=== PATIENT | female | born 1975 | race Caucasian/White ===

== ENCOUNTER → 2018-11-25 05:46 | Day surgery (SDC) | payer OTHER ==
[~2018-11-25 05:46] MED LIST: Acetaminophen TAB* 325 MG ONE; Acetaminophen TAB* 325 MG PO PRN; Buffered Lidocaine 1% SYRIN* 1 ML/SYRINGE INTRADERM ONE; Bupivacaine 0.5% W/EPI SDV* 10 ML VIAL INJ ONE; Bupivacaine 0.5%* 50 ML MDV VIAL ONE; Clindamycin 900 MG/D5W BAG(*) 900 MG/50 ML BAG IVPB ONE; Dexamethasone IV* 4 MG/ML 1 ML (4 MG) ONE; DiMENhydriNATE IV* 50 MG/ML VIAL IV PUSH PRN; Ketorolac INJ* 30 MG/ML 1 ML VIAL ONE; Lactated Ringers 1000 ML Bag* 1,000 ML IV SCH; Lidocaine 2% PF * 5 ML VIAL ONE; Metoclopramide IV* 5 MG/ML 2 ML VIAL ONE; Midazolam* 1 MG/ML 2 ML VIAL (2 MG) ONE; Naloxone* 0.4 MG/ML 1 ML VIAL IV PRN; Ondansetron INJ* 2 MG/ML VIAL ONE; Propofol* 10 MG/ML 20 ML BTL ONE; Sodium Citrate/Citric Acid* 15 ML UDC PO ONE; fentaNYL* 50 MCG/ML 2 ML VIAL (100 MCG VIAL) ONE; oxyCODONE TAB* 5 MG TAB ONE
[2018-11-25] MEDS: fentaNYL* 50 MCG/ML 2 ML VIAL (100 MCG VIAL) IV PRN ×4 (09:35→10:46)
--- NOTE | 2018-11-25 09:53 | OP ---
Operative Report - Blank - Operative Report Date of Operation: 11/25/18 Note: PATIENT: Casi Bunn DATE OF : 1975 DATE OF SURGERY: 11/25/2018 SURGEON: Ney Rivera MD FORKLIFT OPERATOR: MARIO Amaya, whos assistance was necessary for positioning, retraction, help with instrumentation, and closure. ANESTHESIOLOGIST: Dr. Flowers PREOPERATIVE DIAGNOSIS: Right foot painful retained hardware. Right peroneal tenosynovitis and peroneus brevis tear. Right posterior tibial tendon tear. POSTOPERATIVE DIAGNOSIS: Right foot painful retained hardware. Right peroneal tenosynovitis and peroneus brevis tear. Right posterior tibial tendon tear. OPERATION: 1. Right foot removal of deep hardware. 2. Right peroneus brevis tendon repair. 3. Right synovectomy of peroneal tendon sheath. 4. Right posterior tibial tendon repair. ANESTHESIA: General IMPLANTS: none TOURNIQUET TIME: Less than 2 hours with a well-padded thigh tourniquet at 250 mmHg SPECIMENS: none ESTIMATED BLOOD LOSS: minimal COMPLICATIONS: none STATUS: Stable from the operating room to the recovery room and then home. INDICATIONS FOR PROCEDURE: Casi had a prior right foot surgery and continues to have pain both medially and laterally. Both operative and non operative treatment alternatives were reviewed. Further, the nature and risks of surgery were reviewed in careful detail, in the office as well as the pre-operative holding area. Our discussions regarding the risks of surgery included, but were not limited to, infection, wound problems, nerve injury, neuroma, RSD, persistent symptoms, blood clot, failure of the surgery, and even the remote chance of catastrophic complication. DESCRIPTION OF PROCEDURE: The patient was seen in the preoperative holding unit and informed written consent was obtained. The appropriate extremity was marked. The patient was then brought to the operating room and carefully positioned on the operating room table. Anesthesia was induced. All bony prominences were padded with great care. A chlorhexidine based pre-scrub was performed followed by a chloraprep prep and drape in standard sterile fashion. A surgical safety pause was then conducted in which we confirmed the appropriate patient, extremity, planned procedure, availability of equipment, indication and administration of prophylactic antibiotics, and DVT prophylaxis in the form of a compression boot on the non-surgical extremity. An Esmarch exsanguination of the limb was then performed and the tourniquet inflated. I utilized the prior longitudinal hindfoot incision. I carried the dissection down through the soft tissue to the level of the periosteum and superior peroneal retinaculum (SPR). I exposed the calcaneal hardware. This was removed with a Karnak elevator in its entirety. I then carefully incised the SPR off of the posterior fibula to expose the peroneal tendons. Dissection of the tendons was carried distally. There was a large amount of inflamed tenosynovium and scar tissue within the tendon sheath. An extensive synovectomy was performed. Additionally, there was a low-lying peroneus brevis muscle belly which was debrided and excised. The tendons were explored at this time for any tears. There was a longitudinal split tear of the peroneus brevis. A removed a small slip of loose frayed tendon in this area, leaving approximately 90% of the tendon intact. I then utilized a 3-0 Ethibond suture to repair the tendon tear. At this point, I carefully inspected the peroneal groove at the posterior aspect of the fibula. This was deemed to have adequate depth so the decision was made not to perform a groove deepening procedure. So at this point I carefully planned out the repair of the superior peroneal retinaculum. I then reduced the tendons and they sat nicely in the retro-fibular groove. The wound was copiously irrigated. I repaired the SPR utilizing Arthrex fiber tack suture anchors and #1 Vicryl. I was able to pass a Karnak under the repaired SPR without difficulty after the repair. The wound was then copiously irrigated and closed in layers utilizing 3-0 Monocryl and skin raheel. I then turned my attention to the medial ankle and hindfoot. I utilized the prior longitudinal incision. I carefully dissected down to the retinacular layer. The posterior tibial tendon was exposed. There was a split longitudinal tear in the tendon. I then exposed the FDL and FHL tendons. There was extensive scar tissue in these tendons were quite degenerated. In fact, the posterior tibial tendon was a highest quality of the 3 tendons. Therefore, I decided to repair the posterior tibial tendon tear with 3-0 Ethibond suture. A tenolysis was performed of the other tendons. The retinacular layer was repaired with #1 Vicryl. We then irrigated the wound copiously again. The wound was closed in a layered fashion utilizing 3-0 Monocryl and 3-0 nylon. A sterile dressing was then applied and the ankle was splinted in a neutral position. All needle and sponge counts were correct at the end of the case. The patient was awakened from anesthesia and transferred to the recovery room in stable condition. There were no complications. ATTESTATION: I attest I was present and scrubbed and performed the critical portions of the procedure myself. POST-OPERATIVE PLAN: The patient will remain [id number] for an anticipated duration of 6 weeks. Follow up will be in 2 weeks for likely suture removal and transition into a short leg cast.
[2018-11-25] MEDS: oxyCODONE TAB* 5 MG TAB PO PRN ×2 (09:58→10:59)
[2018-11-25 13:15] VITALS: BP 128/84
== END | disposition home or self-care (01) ==
LOC: OR 05:46
PROVIDERS: ATTEND Orthopaedic Surgery
DX: T84.84XA Pain due to internal orthopedic prosthetic devices, implants and grafts, initial encounter (principal); Y83.1 Surgical operation with implant of artificial internal device as the cause of abnormal reaction of the patient, or of later complication, without mention of misadventure at the time of the procedure; S93.691D Other sprain of right foot, subsequent encounter; M65.871 Other synovitis and tenosynovitis, right ankle and foot; X58.XXXD Exposure to other specified factors, subsequent encounter; Y92.9 Unspecified place or not applicable; F17.201 Nicotine dependence, unspecified, in remission; F41.8 Other specified anxiety disorders; K21.9 Gastro-esophageal reflux disease without esophagitis; M79.7 Fibromyalgia
CPT/HCPCS: 88300; A9270-GY; C1713; J1100; J1885; J2250; J2405; J2704; J2765; J3010; J3490

== ENCOUNTER 2018-12-03 17:23 | Inpatient (IN) | payer OTHER ==
[2018-12-03] MEDS ORDERED: oxyCODONE/Acetamin 5/325 MG* TAB PO PRN ×2 (18:07)
[2018-12-03] MEDS ORDERED: diPHENhydraMINE PO* 25 MG PO PRN (18:07)
[2018-12-03] MEDS ORDERED: Aspirin TAB* 325 MG PO ONE (18:20)
[2018-12-03] MEDS ORDERED: diPHENhydraMINE PO* 50 MG PO PRN (18:27)
[2018-12-03] MEDS ORDERED: oxyCODONE TAB* 5 MG TAB PO PRN (18:31)
[2018-12-03] MEDS ORDERED: Cefepime ADVAN(*) 1 GM in NS 0.9% 50 ML* 50 ML IVPB SCH (19:00)
[2018-12-03] MEDS ORDERED: Vancomycin per Pharmacy* NOTE FOLLOW UP SCH (19:00)
--- OUTSIDE RECORDS SUMMARY | 2018-12-03 19:24 | XMS REPORT | Continuity of Care Document ---
:1975 External Reference #:[id number] Author Name Ney Rivera MD (transmitted by agent of provider Randi Batres) Address [address] [place] [address] Care Team Providers Name Role Phone Patient's Choice Care Team Information Director Of Managed Care Unavailable Problems Active Problems Provider Date Peroneal tendinitis, right leg Ney Rivera MD Onset: 09/24/2018 Tibialis tendinitis Ney Rivera MD Onset: 10/25/2018 Pain due to internal orthopedic prosthetic Ney Rivera MD Onset: 2018 devices, implants and grafts, initial encounter Social History Type Date Description Comments Sex Unknown ETOH Use Denies alcohol use Tobacco Use Start: Unknown Heavy tobacco smoker (more than 20 yrs 10 cigarettes/day) Smoking Status Reviewed: 10/25/18 Heavy tobacco smoker (more than 20 yrs 10 cigarettes/day) Exercise Type/Frequency Exercises sporadically Allergies, Adverse Reactions, Alerts Active Allergies Reaction Severity Comments Date Tramadol Hives 09/21/2018 Morphine Difficulty breathing 09/21/2018 Medications Active Medications SIG Qnty Indications Ordering Provider Date Oxycodone HCL 1 tabs by mouth 10tabs Ney Rivera MD 11/25/2018 5mg Tablets every 6 hours as needed Knee Scooter Ht: 67" Wt: 1units Ney Rivera MD 11/19/2018 180lb Diclofenac Sodium take 1 by mouth 30tabs Ana Andrea MD 11/02/2018 75mg twice a day as Tablets DR needed for pain Citalopram Hydrobromide Unknown 10mg Tablets Hydroxyzine HCL Unknown 50mg Tablets Lisinopril Unknown 40mg Tablets Levothyroxine Sodium Unknown 25mcg Tablets Amlodipine Besylate Unknown 5mg Tablets Promethazine HCL Unknown 25mg Tablets Immunizations Description No Information Available Vital Signs Date Vital Result Comment 12/03/2018 3:19pm Height 67 inches 5'7" Weight 162.00 lb Heart Rate 70 /min BP Systolic 136 mmHg BP Diastolic 78 mmHg Respiratory Rate 12 /min Body Temperature 98.7 F Pain Level 3 BMI (Body Mass Index) 25.4 kg/m2 10/25/2018 1:20pm Height 67 inches 5'7" Weight 180.00 lb Heart Rate 102 /min BP Systolic 140 mmHg BP Diastolic 86 mmHg Respiratory Rate 14 /min Pain Level 4 BMI (Body Mass Index) 28.2 kg/m2 Results Test Date Facility Test Result H/L Range Note Laboratory test 11/25/2018 [facility] Surgical SEE RESULT [address] [place] [address] [phone] 1 SEE RESULT BELOW Name: VIC BUNN Ulises : [address]: Ney Rivera MD Acct: [id number] Unit: [id number] AGE: 42 Location: OR Re11/25/18 SEX: F Status: [facility] SPEC: [id number] HOWARD: 11/25/[address] [facility] [address]: Ney Rivera MD REQ: [id number] RECD: 11/25/18 STATUS: SOUT _ ORDERED: LEVEL 1 FINAL DIAGNOSIS Ankle, right, hardware removal: Foreign body (orthopedic hardware) (gross diagnosis) PRE-OPERATIVE DIAGNOSIS Pain due to internal orthopedic prosthetic device, peroneal tendinitis GROSS DESCRIPTION The specimen is received fresh labeled, Right Ankle Hardware, and consists of a 3.5 by for 2.0 x 0.2 cm silver metallic irregular staple. Per established hospital medical staff protocol, no tissue is submitted. Gross only. Signed by and Reported on: Jessika Sharma MD 11/26/18 1154 END OF REPORT DEPARTMENT OF PATHOLOGY, [address] [place] [address] Jose Hagan M.D. Director [facility] # [id number] Procedures Date Code Description Status 11/25/2018 66851 Synovectomy Flexor Tendon Foot Completed 11/25/201810632 Synovectomy Flexor Tendon Foot Completed 11/25/2018 84848 Repair Flexor Tendon Leg Primary W/O Graft Completed 11/25/2018 31625 Repair Flexor Tendon Leg Primary W/O Graft Completed 11/25/2018 92894 Repair Flexor Tendon Leg Primary W/O Graft Completed 11/25/2018 10183 Removal Implant Deep Wire,Screw Nail,Luis Alfredo Or Plate Completed Medical Devices Description No Information Available Encounters Type Date Location Provider Dx Diagnosis Office Visit 10/25/2018 [facility] Ney Rivera, T84.84xA Pain due to 1:00p at [facility] internal orthopedic prosth dev/grft, init M76.71 Peroneal tendinitis, right leg M76.821 Posterior tibial tendinitis, right leg Office Visit 09/24/2018 Indu Rivera M76.71 Peroneal 1:30p [facility]oped[facility] at [facility], right [facility] leg Office Visit 09/21/2018 [facility]azal Fry, M25.551 Pain in right hip 1:30p Orthopedics at [facility] M54.41 Lumbago with sciatica, right side Assessments Date Code Description Provider 11/25/2018 T84.84xA Pain due to internal orthopedic prosthetic Lorie Srinivasan RPA-Grover devices, implants and grafts, initial encounter 11/25/2018 T84.84xA Pain due to internal orthopedic prosthetic Ney Rivera MD devices, implants and grafts, initial encounter 11/25/2018 M76.71 Peroneal tendinitis, right leg ANTONELLA Amaya 11/25/2018 M76.71 Peroneal tendinitis, right leg Ney Rivera MD 11/25/2018 S86.311A Strain of muscle(s) and tendon(s) of peroneal ANTONELLA Amaya muscle group at lower leg level, right leg, initial encounter 11/25/2018 S86.311A Strain of muscle(s) and tendon(s) of alexandreal Ney Rivera MD muscle group at lower leg level, right leg, initial encounter 11/25/2018 S86.111A Strain of other muscle(s) and tendon(s) of Lorie Srinivasan RPA-Grover posterior muscle group at lower leg level, right leg, initial encounter 11/25/2018 S86.111A Strain of other muscle(s) and tendon(s) of Ney Rivera MD posterior muscle group at lower leg level, right leg, initial encounter 10/25/2018 T84.84xA Pain due to internal orthopedic prosthetic Ney Rivera MD devices, implants and grafts, initial encounter 10/25/2018 M76.71 Peroneal tendinitis, right leg Ney Rivera MD 10/25/2018 M76.821 Posterior tibial tendinitis, right leg Ney Rivera MD 09/24/2018 M76.71 Peroneal tendinitis, right leg Ney Rivera MD 09/21/2018 M25.551 Pain in right hip Fazal Fry M.D. 09/21/2018 M54.41 Lumbago with sciatica, right side Fazal Fry M.D. Plan of Treatment No Information Available Functional Status Description No Information Available Mental Status Description No Information Available Referrals Description No Information Available
--- OUTSIDE RECORDS SUMMARY | 2018-12-03 19:24 | XMS REPORT | Continuity of Care Document ---
:1975 External Reference #:[id number] Author Name Ney Rivera MD (transmitted by agent of provider Tangela Kendall) Address [address] [place] [id number] Care Team Providers Name Role Phone Patient's Choice Care Team Information Consumer Marketing Analyst Unavailable Problems Active Problems Provider Date Peroneal tendinitis, right leg Ney Rivera MD Onset: 09/24/2018 Pain due to internal orthopedic prosthetic Ney Rviera MD Onset: 2018 devices, implants and grafts, [...] Medications SIG Qnty Indications Ordering Provider Date Citalopram Hydrobromide Unknown 10mg Tablets Hydroxyzine HCL Unknown 50mg Tablets Lisinopril 40mg Unknown Tablets Levothyroxine Sodium Unknown 25mcg Tablets Amlodipine Besylate Unknown 5mg Tablets Promethazine HCL Unknown 25mg Tablets Immunizations Description No Information Available Vital Signs Date Vital Result Comment 10/25/2018 1:20pm Height 67 inches 5'7" Weight 180.00 lb Heart Rate 102 /min BP Systolic 140 mmHg BP Diastolic 86 mmHg Respiratory Rate 14 /min Pain Level 4 BMI (Body Mass Index) 28.2 kg/m2 09/24/2018 1:48pm Height 67 inches 5'7" Weight 190.00 lb Heart Rate 85 /min BP Systolic 126 mmHg BP Diastolic 84 mmHg Pain Level 10 BMI (Body Mass Index) 29.8 kg/m2 Results Description No Information Available Procedures Description No Information Available Medical Devices Description No Information Available Encounters Type Date Location Provider Dx Diagnosis Office Visit 09/24/2018 [facility] Ney Rivera M76.71 Peroneal 1:30p [facility] tendinitis, right leg Office Visit 09/21/2018 [facility] Fazal Fry M.D. M25.551 Pain in right hip 1:30p [facility] M54.41 Lumbago with sciatica, right side Assessments Date Code Description Provider 10/25/2018 T84.84xA Pain due to internal orthopedic prosthetic Ney Rivera MD devices, implants and grafts, initial encounter 10/25/2018 M76.71 Peroneal tendinitis, right leg Ney Rivera MD 09/24/2018 M76.71 Peroneal tendinitis, right leg Ney Rivera MD 09/21/2018 M25.551 Pain in right hip Fazal Fry M.D. 09/21/2018 M54.41 Lumbago with sciatica, right side Fazal Fry M.D. Plan of Treatment Future Appointment(s):12/06/2018 2:45 pm - N[facility] - Ney Rivera MDT84.84xA Pain due to internal orthopedic prosthetic devices, implants and grafts, initial [id number] Peroneal tendinitis, right legFollow up:Follow Up: 13-15 days postop Functional Status Description No Information Available Mental Status Description No Information Available Referrals Description No Information Available
[2018-12-03] MEDS ORDERED: Vancomycin(*) 1,500 MG in NS 0.9% 250 ML* 250 ML IVPB ONE (20:30)
[2018-12-03] MEDS: Acetaminophen TAB* 325 MG PO PRN (20:41)
[2018-12-03] MEDS: Promethazine TAB* 25 MG PO PRN (20:44)
[2018-12-03] MEDS ORDERED: Sucralfate TAB* 1 GM PO SCH (21:00)
[2018-12-03 21:30] LABS: ABS Basophils 0.1 10^3/ul (0-0.2); ABS Eosinophils 0.2 10^3/ul (0-0.6); ABS Lymphocytes 1.7 10^3/ul (1.0-4.8); ABS Monocytes 0.5 10^3/ul (0-0.8); ABS Neutrophils 4.8 10^3/ul (1.5-7.7); Eosinophil % 2.4 %; Hematocrit 36 % (35-47); Hemoglobin 12.2 g/dL (12.0-16.0); Lymphocyte % 23.5 %; Mean Corpuscular HGB Conc 34 g/dL (31-36); Mean Corpuscular Hemoglobin 30 pg (27-31); Mean Corpuscular Volume 89 fL (80-97); Mean Platelet Volume 6.6 fL (7.4-10.4); Platelet Count 400 10^3/uL (150-450); Red Blood Count 4.05 10^6 /uL (3.70-4.87); Red Cell Distribution Width 15 % (10-15); White Blood Count 7.2 10^3/uL (3.5-10.8)
[2018-12-03 21:44] LABS: BUN/Creatinine Ratio 16.7 (8-20); C Reactive Protein 11.33 mg/L (<8.01); Calcium 9.5 mg/dL (8.6-10.3); EGFR African American 72.3 (>60); EGFR Non-African American 59.7 (>60); Potassium 4.2 mmol/L (3.5-5.0)
[2018-12-03 23:02] LABS: Erythrocyte Sed Rate 38 mm/Hr (0-19)
[2018-12-04] MEDS: Acetaminophen TAB* 325 MG PO PRN ×4 (03:30→23:02)
[2018-12-04] MEDS: Levothyroxine TAB* 25 MCG TAB PO SCH (05:24)
[2018-12-04] MEDS: Promethazine TAB* 25 MG PO PRN ×3 (05:24→17:33)
[2018-12-04] MEDS: oxyCODONE TAB* 5 MG TAB PO PRN ×2 (05:24→21:39)
[2018-12-04 08:36] LABS: ABS Eosinophils 0.2 10^3/ul (0-0.6); ABS Lymphocytes 1.9 10^3/ul (1.0-4.8); ABS Monocytes 0.5 10^3/ul (0-0.8); ABS Neutrophils 2.7 10^3/ul (1.5-7.7); Eosinophil % 3.7 %; Hematocrit 33 % (35-47); Hemoglobin 10.9 g/dL (12.0-16.0); Lymphocyte % 35.9 %; Mean Corpuscular HGB Conc 34 g/dL (31-36); Mean Corpuscular Hemoglobin 30 pg (27-31); Mean Corpuscular Volume 90 fL (80-97); Mean Platelet Volume 6.7 fL (7.4-10.4); Nucleated Red Blood Cells % 0.1; Platelet Count 307 10^3/uL (150-450); Red Blood Count 3.61 10^6 /uL (3.70-4.87); Red Cell Distribution Width 15 % (10-15); White Blood Count 5.3 10^3/uL (3.5-10.8)
[2018-12-04] MEDS: Pantoprazole TAB * 40 MG TAB PO SCH (08:43)
[2018-12-04] MEDS: Nortriptyline CAP* 10 MG PO SCH (08:43)
[2018-12-04] MEDS: amLODIPine TAB* 5 MG PO SCH (08:43)
[2018-12-04] MEDS: Lisinopril TAB* 10 MG PO SCH (08:43)
[2018-12-04] MEDS: CMC:Meloxicam(NF) 7.5 MG TAB PO SCH (08:43)
[2018-12-04] MEDS: Citalopram TAB* 10 MG PO SCH (08:44)
[2018-12-04 08:53] LABS: BUN/Creatinine Ratio 19.7 (8-20); Calcium 9.3 mg/dL (8.6-10.3); EGFR African American 61.7 (>60); Potassium 4.1 mmol/L (3.5-5.0)
[2018-12-04] MEDS ORDERED: Cefepime ADVAN(*) 1 GM in NS 0.9% 50 ML* 50 ML IVPB SCH (09:00)
[2018-12-04] MEDS ORDERED: CEFEPIME ADVAN IVPB SCH (09:00)
--- NOTE | 2018-12-04 09:04 | PN ---
Progress Note - Progress Note Date of Service: 12/04/18 Note: I saw and examined Casi this morning. Pain well controlled. On abx. Temp Pulse Resp BP Pulse Ox 98.2 F 80 18 96/63 94 12/04/18 03:15 12/04/18 03:15 12/04/18 05:24 12/04/18 03:15 12/04/18 03:15 WBC 5.3 ESR 38 CRP 11.33 On exam lateral ankle erythema less red but geographically stable. Still TTP. No drainage from wound. No TTP ankle joint line. A/P: Right ankle postop wound infection -continue antibiotics -NWB RLE with elevation -daily labs -DVT prophylaxis with pneumoboots and aspirin
[2018-12-04] MEDS: Vancomycin(*) 1,000 MG in NS 0.9% 250 ML* 250 ML IVPB SCH ×3 (09:07→23:01)
[2018-12-04] MEDS: Sucralfate TAB* 1 GM PO SCH ×2 (11:32→21:38)
[2018-12-04] MEDS: hydrOXYzine HCL TAB* 50 MG PO SCH ×2 (16:45→21:38)
[2018-12-04] MEDS: Cefepime 1 GM in Dextrose(*) 1 GM/50 ML BAG IV SCH (21:38)
[2018-12-05] MEDS: oxyCODONE TAB* 5 MG TAB PO PRN ×4 (03:12→22:38)
[2018-12-05] MEDS: Promethazine TAB* 25 MG PO PRN ×2 (03:13→18:05)
[2018-12-05] MEDS: Acetaminophen TAB* 325 MG PO PRN ×2 (06:02→18:05)
[2018-12-05] MEDS: Levothyroxine TAB* 25 MCG TAB PO SCH (06:03)
[2018-12-05 07:54] LABS: ABS Eosinophils 0.2 10^3/ul (0-0.6); ABS Lymphocytes 2.1 10^3/ul (1.0-4.8); ABS Monocytes 0.4 10^3/ul (0-0.8); ABS Neutrophils 2.1 10^3/ul (1.5-7.7); Eosinophil % 4.6 %; Hematocrit 32 % (35-47); Hemoglobin 10.9 g/dL (12.0-16.0); Lymphocyte % 43.5 %; Mean Corpuscular HGB Conc 34 g/dL (31-36); Mean Corpuscular Hemoglobin 31 pg (27-31); Mean Corpuscular Volume 89 fL (80-97); Mean Platelet Volume 6.7 fL (7.4-10.4); Nucleated Red Blood Cells % 0.1; Platelet Count 289 10^3/uL (150-450); Red Blood Count 3.55 10^6 /uL (3.70-4.87); Red Cell Distribution Width 14 % (10-15); White Blood Count 4.8 10^3/uL (3.5-10.8)
[2018-12-05] MEDS ORDERED: Vancomycin Trough Check NOTE FOLLOW UP ONE (08:00)
[2018-12-05 08:11] LABS: BUN/Creatinine Ratio 21.4 (8-20); EGFR African American 61.7 (>60); Potassium 4.7 mmol/L (3.5-5.0)
[2018-12-05] MEDS: Citalopram TAB* 10 MG PO SCH (08:53)
[2018-12-05] MEDS: Nortriptyline CAP* 10 MG PO SCH (08:53)
[2018-12-05] MEDS: Pantoprazole TAB * 40 MG TAB PO SCH (08:53)
[2018-12-05] MEDS: amLODIPine TAB* 5 MG PO SCH (08:53)
[2018-12-05] MEDS: Lisinopril TAB* 10 MG PO SCH (08:53)
[2018-12-05] MEDS: CMC:Meloxicam(NF) 7.5 MG TAB PO SCH (08:54)
[2018-12-05] MEDS: Ondansetron ODT TAB* 4 MG PO PRN ×2 (09:03→22:39)
[2018-12-05] MEDS: Vancomycin(*) 1,000 MG in NS 0.9% 250 ML* 250 ML IVPB SCH (09:06)
[2018-12-05] MEDS: Cefepime 1 GM in Dextrose(*) 1 GM/50 ML BAG IV SCH ×2 (09:08→21:05)
--- NOTE | 2018-12-05 10:20 | PN ---
Progress Note - Progress Note Date of Service: 12/05/18 Note: I saw and examined Casi. Pain and swelling improving. She has been elevating. Temp Pulse Resp BP Pulse Ox 97.6 F 67 18 94/64 100 12/05/18 03:15 12/05/18 03:15 12/05/18 08:54 12/05/18 03:15 12/05/18 03:15 On exam: NAD A&Ox3 palpable peda pulses and feet WWP Lateral erythema receding and less red. Swelling improving. No drainage. TTP improving. medial wound looks excellent. Able to flex extend ankles and toes WBC 4.8 Cr 1.14 A/P: Right lateral wound infection, improving - Continue abx - NWB RLE, elevation - alycia labs - aspirin and pneumoboots for DVT prophylaxis - likely d/c tomorrow on oral abx
[2018-12-05] MEDS: Sucralfate TAB* 1 GM PO SCH ×2 (10:53→21:01)
[2018-12-05] MEDS: Vancomycin(*) 750 MG in NS 0.9% 250 ML* 250 ML IVPB SCH (14:12)
[2018-12-05] MEDS: hydrOXYzine HCL TAB* 50 MG PO SCH ×2 (16:52→22:39)
[2018-12-06] MEDS: Vancomycin(*) 750 MG in NS 0.9% 250 ML* 250 ML IVPB SCH ×2 (02:44→14:10)
[2018-12-06] MEDS: oxyCODONE TAB* 5 MG TAB PO PRN ×5 (02:50→23:44)
[2018-12-06] MEDS: Promethazine TAB* 25 MG PO PRN ×3 (02:52→15:21)
[2018-12-06] MEDS: Acetaminophen TAB* 325 MG PO PRN ×4 (02:52→23:44)
[2018-12-06] MEDS: Levothyroxine TAB* 25 MCG TAB PO SCH (06:27)
[2018-12-06 06:56] LABS: ABS Eosinophils 0.3 10^3/ul (0-0.6); ABS Monocytes 0.4 10^3/ul (0-0.8); ABS Neutrophils 2.5 10^3/ul (1.5-7.7); Eosinophil % 4.9 %; Hematocrit 31 % (35-47); Hemoglobin 10.5 g/dL (12.0-16.0); Mean Corpuscular HGB Conc 34 g/dL (31-36); Mean Corpuscular Hemoglobin 31 pg (27-31); Mean Corpuscular Volume 90 fL (80-97); Mean Platelet Volume 6.9 fL (7.4-10.4); Nucleated Red Blood Cells % 0.1; Platelet Count 262 10^3/uL (150-450); Red Blood Count 3.44 10^6 /uL (3.70-4.87); Red Cell Distribution Width 14 % (10-15); White Blood Count 5.2 10^3/uL (3.5-10.8)
[2018-12-06 07:22] LABS: BUN/Creatinine Ratio 17.5 (8-20); Calcium 9.1 mg/dL (8.6-10.3); EGFR African American 56.6 (>60); EGFR Non-African American 46.8 (>60); Potassium 4.9 mmol/L (3.5-5.0)
[2018-12-06] MEDS: Lisinopril TAB* 10 MG PO SCH (09:15)
[2018-12-06] MEDS: Citalopram TAB* 10 MG PO SCH (09:17)
[2018-12-06] MEDS: Nortriptyline CAP* 10 MG PO SCH (09:17)
[2018-12-06] MEDS: Pantoprazole TAB * 40 MG TAB PO SCH (09:17)
[2018-12-06] MEDS: CMC:Meloxicam(NF) 7.5 MG TAB PO SCH (09:18)
[2018-12-06] MEDS: Ondansetron ODT TAB* 4 MG PO PRN ×3 (09:18→23:47)
[2018-12-06] MEDS: Cefepime 1 GM in Dextrose(*) 1 GM/50 ML BAG IV SCH ×2 (09:18→20:37)
[2018-12-06] MEDS: amLODIPine TAB* 5 MG PO SCH (09:18)
[2018-12-06] MEDS: Sucralfate TAB* 1 GM PO SCH ×2 (09:19→20:37)
--- NOTE | 2018-12-06 13:40 | PN ---
Progress Note - Progress Note Date of Service: 12/06/18 SOAP: Subjective: [Pt seen at bedside, she is feeling well without fever, chills, nausea, vomiting , CP, SOB. Right ankle pain is reported as unchanged from yesterday. Has been keeping her RLE elevated and iced. Objective: []Gen: NAD, nontoxic appearing LLE: Edema of the medial and lateral ankle as well as the foot. Able to f/e MTPs and ankle both actively and passively. Laterally there is no erythema or drainage, there is residual ecchymosis limited to the lateral ankle. Medial incision healing well without drainage, mild staple irritation no erythema. Assessment: []Right lateral wound infection, improving Plan: []Continue abx. ID consulted, ready for DC from ortho standpoint once ID abx recs in place - NWB RLE, elevation - aspirin and pneumoboots for DVT prophylaxis Vital Signs Temp 97.9 F 12/06/18 10:54 Pulse 65 12/06/18 10:54 Resp 16 12/06/18 10:54 BP 105/67 12/06/18 10:54 Pulse Ox 98 12/06/18 10:54 Intake & Output 12/05/18 12/06/18 12/06/18 18:59 06:59 18:59 Intake Total 4363 583 9388 Balance 5445 217 5654 Intake: IV Fluids 30 28 NS 30 28 IVPB 50 349 ABX - CEFEPIME 50 NS 349 Oral [phone] Other: Date of Last Bowel 12/04/18 12/04/18 Movement # Bowel Movements 0 0 0 # Voids 1 0 1 Laboratory Last Values WBC 5.2 10^3/uL (3.5-10.8) 12/06/18 06:25 RBC 3.44 10^6 /uL (3.70-4.87) L 12/06/18 06:25 Hgb 10.5 g/dL (12.0-16.0) L 12/06/18 06:25 Hct 31 % (35-47) L 12/06/18 06:25 MCV 90 fL (80-97) 12/06/18 06:25 MCH 31 pg (27-31) 12/06/18 06:25 MCHC 34 g/dL (31-36) 12/06/18 06:25 RDW 14 % (10-15) 12/06/18 06:25 Plt Count 262 10^3/uL (150-450) 12/06/18 06:25 MPV 6.9 fL (7.4-10.4) L 12/06/18 06:25 Neut % (Auto) 47.1 % 12/06/18 06:25 Lymph % (Auto) 39.0 % 12/06/18 06:25 Clarion % (Auto) 8.5 % 12/06/18 06:25 Eos % (Auto) 4.9 % 12/06/18 06:25 Baso % (Auto) 0.5 % 12/06/18 06:25 Absolute Neuts (auto) 2.5 10^3/ul (1.5-7.7) 12/06/18 06:25 Absolute Lymphs (auto) 2.0 10^3/ul (1.0-4.8) 12/06/18 06:25 Absolute Monos (auto) 0.4 10^3/ul (0-0.8) 12/06/18 06:25 Absolute Eos (auto) 0.3 10^3/ul (0-0.6) 12/06/18 06:25 Absolute Basos (auto) 0.0 10^3/ul (0-0.2) 12/06/18 06:25 Absolute Nucleated RBC 0.0 10^3/ul 12/06/18 06:25 Nucleated RBC % 0.1 12/06/18 06:25 ESR 38 mm/Hr (0-19) H 12/03/18 21:22 Sodium 138 mmol/L (135-145) 12/06/18 06:25 Potassium 4.9 mmol/L (3.5-5.0) 12/06/18 06:25 Chloride 107 mmol/L (101-111) 12/06/18 06:25 Carbon Dioxide 29 mmol/L (22-32) 12/06/18 06:25 Anion Gap 2 mmol/L (2-11) 12/06/18 06:25 BUN 22 mg/dL (6-24) 12/06/18 06:25 Creatinine 1.26 mg/dL (0.51-0.95) H 12/06/18 06:25 Est GFR ( Amer) 56.6 (>60) 12/06/18 06:25 Est GFR (Non-Af Amer) 46.8 (>60) 12/06/18 06:25 BUN/Creatinine Ratio 17.5 (8-20) 12/06/18 06:25 Glucose 90 mg/dL (70-100) 12/06/18 06:25 Calcium 9.1 mg/dL (8.6-10.3) 12/06/18 06:25 C-Reactive Protein 11.33 mg/L (<8.01) H 12/03/18 21:22 Vancomycin Trough 24.4 mcg/mL 12/05/18 07:44
[2018-12-06 14:35] LABS: C Reactive Protein 4.33 mg/L (<8.01)
[2018-12-06] MEDS: hydrOXYzine HCL TAB* 50 MG PO SCH (18:48)
--- NOTE | 2018-12-06 20:18 | CONS ---
CONSULTATION REPORT: DATE OF CONSULT: 12/06/18 PRIMARY CARE PROVIDER: [facility]. PROVIDER REQUESTING CONSULTATION: MARIO Starks. CONSULTING SERVICE: Infectious Disease. PROVIDER: Sarah Sinclair NP. ATTENDING PROVIDER: Lionel Arvizu MD.* (DICTATED BY SARAH SINCLAIR NP) REASON FOR CONSULTATION: Right ankle infection after surgical procedure. IMPRESSION: Right ankle infection, status post right ankle surgery. The patient had elevated CRP on admission of 11.33, ESR 38, no leukocytosis. She has been afebrile. She has been on cefepime and vancomycin. No cultures were obtained as there is no drainage to obtain cultures. RECOMMENDATIONS/PLAN: Recommend adding a CRP to today's labs to see if this is trending up or down. We would recommend considering continuing on cefepime, vancomycin; and follow her for 1 more day, so we can be sure that she is improving. If the patient would like to be discharged today, she can go on doxycycline 100 mg by mouth twice daily and ciprofloxacin 500 mg by mouth b.i.d. for 14 days and followup with ID outpatient. HISTORY OF PRESENT ILLNESS: Ms. Bunn is a 42-year-old female with past medical history significant for ovarian cancer, who underwent removal of right foot deep hardware and tendon repairs on 11/25/18. She states that she was doing okay postoperatively, but on 11/29/18, she developed more pain in her ankle and redness. She saw her primary care provider, pictured, and she was placed on Bactrim. She states she took 7 doses of Bactrim. She was having fevers at that time. She presented to the hospital. At that time, had no leukocytosis. CRP of 11.3. She has been afebrile. She was placed on cefepime and vanco. No cultures were obtained. Encouraged to keep her leg elevated. She feels that during her stay she continues to have edema in her foot. Fevers and chills have resolved. She continues to have right ankle pain that she states is really unchanged. She intermittently has nausea. Denies vomiting, diarrhea, abdominal pain, rash, or recent travel. During her stay, she has continued to have no leukocytosis and has been afebrile. PAST MEDICAL HISTORY: 1. Ovarian cancer. 2. Hypothyroidism. 3. Depression. 4. Hypertension. PAST SURGICAL HISTORY: 1. Status post hysterectomy. 2. Status post right foot surgery in 2017. 3. Status post clubfoot surgery as an . 4. Status post right foot removal of deep hardware, peroneus brevis tendon repair, synovectomy of the peroneal tendon sheath and posterior tibial tendon repair on 10/26/18. MEDICATIONS: Home medications: 1. Oxycodone 5 mg by mouth every 6 hours as needed for pain. 2. Diflucan 75 mg by mouth twice daily as needed for pain. 3. Citalopram 10 mg by mouth daily. 4. Hydroxyzine 50 mg by mouth. 5. Lisinopril 40 mg by mouth daily. 6. Levothyroxine 25 mcg by mouth daily. 7. Amlodipine 5 mg by mouth daily. 8. Promethazine 25 mg by mouth daily. Hospital medications: 1. Acetaminophen 650 mg by mouth every 4 hours as needed for fever or pain. 2. Norvasc 5 mg by mouth every morning. 3. Cefepime 1 g IV every 12 hours. 4. Celexa 10 mg by mouth daily. 5. Benadryl 25 mg by mouth every 8 hours as needed for itching or sleep. 6. Benadryl 50 mg by mouth at bedtime as needed for insomnia. 7. Atarax 50 mg by mouth at bedtime. 8. Levothyroxine 25 mcg by mouth daily. 9. Lisinopril 40 mg by mouth every morning. 10. Meloxicam 15 mg by mouth every morning. 11. Nortriptyline 10 mg by mouth every morning. 12. Zofran 4 mg by mouth every 6 hours as needed for nausea. 13. Oxycodone 5 to 10 mg by mouth every 4 hours as needed for pain. 14. Pantoprazole 40 mg by mouth every morning. 15. Phenergan 25 mg by mouth every 6 hours as needed for nausea. 16. Carafate 1 g by mouth twice daily. 17. Vancomycin 750 mg IV every 12 hours. ALLERGIES: PENICILLIN caused hives and difficulty breathing, ALMONDS, MORPHINE , TRAMADOL. FAMILY HISTORY: Denies any family history of recurrent resistant infections, coronary artery disease, diabetes. Sister with a history of breast cancer. Mother with a history of ovarian cancer. Two maternal aunts and a maternal grandmother with a history of ovarian cancer. SOCIAL HISTORY: She denies alcohol or recreational drug use. She is a former smoker. She quit smoking in October 2018. Prior to that, she is on approximate 25 one-pack year smoking history. REVIEW OF SYSTEMS: I performed a 10-point review of systems. All the pertinent positives and negatives are mentioned in the history of present illness. The remaining review of systems are negative. PHYSICAL EXAMINATION: Vital Signs: Temperature 97.9, heart rate 65, respiratory rate 16, O2 sat 98% on room air, blood pressure 105/67. General Appearance: Alert, pleasant, appears to be in no acute distress. Head: Normocephalic, atraumatic. ENT: Extraocular movements are intact. No subconjunctival hemorrhage. Moist mucous membranes. Neck: Supple. No lymphadenopathy. Neurological: Alert and oriented. Cranial nerves II through XII are grossly intact. She moves all extremities. Cardiovascular: Regular rate and rhythm. S1, S2 present. No murmurs, rubs, or gallops heard. Respiratory: No accessory muscle use. Lungs are clear to auscultation bilateral. Abdomen: Bowel sounds present. Abdomen is soft, nontender, nondistended. Extremities: No edema to the right ankle and foot, 1+. DP and PT pulses 2+ and symmetric, bilateral. Musculoskeletal: No clubbing or cyanosis noted. Exhibits good strength in all extremities. Psychological: Calm and cooperative. Skin: She has some dark erythema to the lateral aspect of the right ankle surrounding an incision that is well approximated. She has an incision to the right medial ankle. The dark discoloration on the lateral ankle is either residual ecchymosis versus dark erythema. Ankle is slightly warm to touch. There is no erythema on the medial aspect of the ankle. DIAGNOSTIC STUDIES/LAB DATA: Sodium 138, potassium 4.9, chloride 107, CO2 29, BUN 22, creatinine 1.26, glucose 90. White blood cell count 5.2, hemoglobin 10.5, hematocrit 31, platelet count 262. CRP on admission 11.33. ESR 38. Please see impression and recommendations outlined above, recommendations have been discussed with MARIO Bledsoe. Thank you for asking us to see Ms. Bunn in consultation. The case has been reviewed with my attending, Dr. Lionel Arvizu, who agrees with the plan of care. Reviewed by FANNY LONDON-C 12/12/18 1314 [id number]/[facility] #: [id number] BASHIR
[2018-12-07] MEDS: Vancomycin(*) 750 MG in NS 0.9% 250 ML* 250 ML IVPB SCH (02:34)
[2018-12-07] MEDS: oxyCODONE TAB* 5 MG TAB PO PRN ×2 (03:26→10:13)
[2018-12-07 04:56] VITALS: BP 106/64
[2018-12-07] MEDS: Levothyroxine TAB* 25 MCG TAB PO SCH (05:39)
[2018-12-07] MEDS: Acetaminophen TAB* 325 MG PO PRN (05:39)
[2018-12-07] MEDS: Cefepime 1 GM in Dextrose(*) 1 GM/50 ML BAG IV SCH (08:27)
[2018-12-07] MEDS: amLODIPine TAB* 5 MG PO SCH (08:27)
[2018-12-07] MEDS: Pantoprazole TAB * 40 MG TAB PO SCH (08:27)
[2018-12-07] MEDS: Lisinopril TAB* 10 MG PO SCH (08:27)
[2018-12-07] MEDS: Nortriptyline CAP* 10 MG PO SCH (08:27)
[2018-12-07] MEDS: CMC:Meloxicam(NF) 7.5 MG TAB PO SCH (08:28)
[2018-12-07] MEDS: Citalopram TAB* 10 MG PO SCH (08:28)
--- NOTE | 2018-12-07 09:40 | PN ---
Progress Note - Progress Note Date of Service: 12/07/18 SOAP: Subjective: []Pt seen and examined at bedside. She feels well without fever, chills, nausea. No pain complaints of right ankle. Objective: []Gen: NAD, nontoxic appearing LLE: Decreased edema of the medial and lateral ankle as well as the foot. Able to f/e MTPs and ankle both actively and passively, ankle ROM improved from yesterday. Laterally there is no erythema or drainage, there is residual ecchymosis limited to the lateral ankle, decreased from yesterday. Medial incision healing well without drainage, mild staple irritation no erythema. Assessment: []Right lateral wound infection, improving Plan: []Continue abx. Pt seen with ID today, recommend doxycycline 100 mg po BID x 14 days and cipro 500 mg po BID x 14 days - NWB RLE, elevation - aspirin and pneumoboots for DVT prophylaxis - DC home Vital Signs Temp 96.6 F 12/07/18 03:02 Pulse 60 12/07/18 03:02 Resp 16 12/07/18 05:40 BP 106/64 12/07/18 03:02 Pulse Ox 99 12/07/18 03:02 Intake & Output 12/06/18 12/07/18 12/07/18 18:59 06:59 18:59 Intake Total 3165 355 Balance 3165 355 Intake: IV Fluids 345 20 ABX - CEFEPIME 50 NS 20 20 vancomycin 275 IVPB 335 ABX - CEFEPIME 55 vancomycin 280 Oral 2820 0 Other: Date of Last Bowel 12/04/18 Movement # Bowel Movements 0 0 # Voids 1 0 Laboratory Last Values WBC 5.2 10^3/uL (3.5-10.8) 12/06/18 06:25 RBC 3.44 10^6 /uL (3.70-4.87) L 12/06/18 06:25 Hgb 10.5 g/dL (12.0-16.0) L 12/06/18 06:25 Hct 31 % (35-47) L 12/06/18 06:25 MCV 90 fL (80-97) 12/06/18 06:25 MCH 31 pg (27-31) 12/06/18 06:25 MCHC 34 g/dL (31-36) 12/06/18 06:25 RDW 14 % (10-15) 12/06/18 06:25 Plt Count 262 10^3/uL (150-450) 12/06/18 06:25 MPV 6.9 fL (7.4-10.4) L 12/06/18 06:25 Neut % (Auto) 47.1 % 12/06/18 06:25 Lymph % (Auto) 39.0 % 12/06/18 06:25 [place] % (Auto) 8.5 % 12/06/18 06:25 Eos % (Auto) 4.9 % 12/06/18 06:25 Baso % (Auto) 0.5 % 12/06/18 06:25 Absolute Neuts (auto) 2.5 10^3/ul (1.5-7.7) 12/06/18 06:25 Absolute Lymphs (auto) 2.0 10^3/ul (1.0-4.8) 12/06/18 06:25 Absolute Monos (auto) 0.4 10^3/ul (0-0.8) 12/06/18 06:25 Absolute Eos (auto) 0.3 10^3/ul (0-0.6) 12/06/18 06:25 Absolute Basos (auto) 0.0 10^3/ul (0-0.2) 12/06/18 06:25 Absolute Nucleated RBC 0.0 10^3/ul 12/06/18 06:25 Nucleated RBC % 0.1 12/06/18 06:25 ESR 38 mm/Hr (0-19) H 12/03/18 21:22 Sodium 138 mmol/L (135-145) 12/06/18 06:25 Potassium 4.9 mmol/L (3.5-5.0) 12/06/18 06:25 Chloride 107 mmol/L (101-111) 12/06/18 06:25 Carbon Dioxide 29 mmol/L (22-32) 12/06/18 06:25 Anion Gap 2 mmol/L (2-11) 12/06/18 06:25 BUN 22 mg/dL (6-24) 12/06/18 06:25 Creatinine 1.26 mg/dL (0.51-0.95) H 12/06/18 06:25 Est GFR ( Amer) 56.6 (>60) 12/06/18 06:25 Est GFR (Non-Af Amer) 46.8 (>60) 12/06/18 06:25 BUN/Creatinine Ratio 17.5 (8-20) 12/06/18 06:25 Glucose 90 mg/dL (70-100) 12/06/18 06:25 Calcium 9.1 mg/dL (8.6-10.3) 12/06/18 06:25 C-Reactive Protein 4.33 mg/L (<8.01) 12/06/18 06:25 Vancomycin Trough 24.4 mcg/mL 12/05/18 07:44
--- NOTE | 2018-12-07 09:49 | DS ---
Orthopedic Discharge Summary - Discharge Summary Discharge Summary Date of Operation: 11/25/18 Attending Orthopedic Provider: Dr Rivera Pre-operative Diagnosis: [Right foot painful retained hardware. Right peroneal tenosynovitis and peroneus brevis tear. Right posterior tibial tendon tear. Operative Procedure: [1. Right foot removal of deep hardware. 2. Right peroneus brevis tendon repair. 3. Right synovectomy of peroneal tendon sheath. 4. Right posterior tibial tendon repair. Disposition of Patient: [home] Condition of Patient: []stable History: VIC ALVAREZ is a 42 year old F with right lateral ankle infection Hospital Course: VIC was admitted to [facility] on 12/03/18 for treatment of right lateral ankle infection for IV antibiotic treatment. She was seen by our infectious disease team and was on cefepime and vanco. No operative procedure was required. She was deemed to be medically and orthopedically stable for discharge 12/07/18 Home Medications Medication Instructions Recorded Confirmed Type Citalopram Hydrobromide [Celexa] 10 mg PO QAM 11/18/18 11/25/18 History Levothyroxine TAB* [Synthroid 25 25 mcg PO 0800 11/18/18 11/25/18 History MCG TAB*] Lisinopril 40 mg PO QAM 11/18/18 11/25/18 History Meloxicam [Mobic] 15 mg PO QAM 11/18/18 11/25/18 History Nortriptyline HCl [Pamelor] 10 mg PO QAM 11/18/18 11/25/18 History Omeprazole 20 mg PO QAM 11/18/18 11/25/18 History Promethazine TAB* [Phenergan Tab*] 25 mg PO Q6H PRN 11/18/18 11/25/18 History Sucralfate [Carafate] 1 gm PO BID 11/18/18 11/25/18 History amLODIPine TAB* [Norvasc 5 mg TAB*] 5 mg PO QAM 11/18/18 11/25/18 History diphenhydrAMINE HCl [Benadryl 50 mg PO BEDTIME PRN 11/18/18 11/25/18 History Allergy] hydrOXYzine HCl [Hydroxyzine HCl] 50 mg PO QPM 10/03/19 10/10/19 History Acetaminophen TAB* [Tylenol TAB*] 650 mg PO Q6H PRN tab 12/06/18 Rx oxyCODONE TAB* [Roxycodone TAB 5 5 mg PO Q4H PRN #6 tab MDD 6 12/06/18 Rx mg*] Discharge Instructions following Orthopedic Surgery: Activity: * Nonweightbearing * Continue physical therapy and occupational therapy exercises as shown Wound care: * OK to shower after post-op day 3, no bathing, swimming, or submerging wound. * Use gentle soap, pat dry. Cover with gauze, JOS wrap or tape. Call Orthopedic office for: * Increased drainage * Redness * Increased pain * Fever * calf pain, redness or swelling Go to ER with shortness of breath or chest pain. Diet: * Regular diet * Increase fluids and fiber to prevent constipation. * Continue to use stool softeners, call office if no bowel motion within 48 hours. Medications See Home Medication List in your packet for medications that you should take after discharge. DVT Prophylaxis: Aspirin Dosin mg once a day Pain Control: oxycodone 5 mg tabes 1 tab every 4 hours as needed for severe pain. Max 6 per day. hold for sedation and wean off as soon as pain allows Antibiotics: doxycycline 100 mg by mouth every 12 hours for 2 weeks cipro 500 mg by mouth every 12 hours for 2 weeks FOLLOW UP: Follow up with Dr. Rivera in 1 week, sooner with concerns, call for appointment Please call our office with any questions or concerns ([phone])
--- NOTE | 2018-12-07 09:52 | PN ---
Progress Note - Progress Note Date of Service: 12/07/18 SOAP: Subjective: CC: Right ankle infection HPI: Ms. Bunn is a 42 yo female with PMH significant for Ovarian cancer, hypothyroidism, and depression. Denies fever, chills, nausea, vomiting, or diarrhea. She continues to have right ankle pain, she feels like the movement has improved. Edema is improving. She is otherwise feeling well. Objective: Vital Signs - 8 hr 12/07/18 12/07/18 12/07/18 02:33 03:02 03:26 Temperature 96.6 F Pulse Rate 60 Respiratory 16 21 16 Rate Blood Pressure 106/64 (mmHg) O2 Sat by Pulse 99 Oximetry Physical Exam: General: NAD, sitting up in bed Neurological: Alert and Oriented HEENT: Moist MM, no thrush Cardiovascular: Heart rate regular Respiratory: Lungs clear Abdominal: Bowel sounds present; ABD soft, non tender, non distended MSK: Able to plantar and dorsi flex right ankle Skin: Ecchymosis to the medial aspect of the right ankle, mild erythema to the skin surrounding the lateral right ankle incision. Improving edema to the right foot and ankle. Incision to the medial and lateral aspects of the right ankle well approximated with sutures intact Laboratory Results - last 24 hr 12/06/18 06:25 Sodium 138 Potassium 4.9 Chloride 107 Carbon Dioxide 29 Anion Gap 2 BUN 22 Creatinine 1.26 H Est GFR ( Amer) 56.6 Est GFR (Non-Af Amer) 46.8 BUN/Creatinine Ratio 17.5 Glucose 90 Calcium 9.1 C-Reactive Protein 4.33 Assessment: 1. Right ankle post operative infection. No cultures obtained. CRP has trended down. Afebrile and no leukocytosis. Has been tolerating cefepime and vanco well. Plan: Discharge on Doxycycline 100 mg PO BID and Cipro 500 mg PO BID for 14 days. Can followup with ID outpatient in 1-2 weeks.
[2018-12-07] MEDS ORDERED: Vancomycin Trough Check NOTE FOLLOW UP ONE (13:30)
== END 2018-12-07 10:55 | disposition home or self-care (01) | DRG 721 ==
LOC: MED 19:21
PROVIDERS: ADMIT Physician Assistant; ATTEND Orthopaedic Surgery
DX: T81.49XA Infection following a procedure, other surgical site, initial encounter (principal); L03.115 Cellulitis of right lower limb; X58.XXXA Exposure to other specified factors, initial encounter; I10 Essential (primary) hypertension; M19.90 Unspecified osteoarthritis, unspecified site; F41.9 Anxiety disorder, unspecified; M79.7 Fibromyalgia; M76.71 Peroneal tendinitis, right leg; E03.9 Hypothyroidism, unspecified; F32.9 Major depressive disorder, single episode, unspecified; F17.210 Nicotine dependence, cigarettes, uncomplicated; Z79.891 Long term (current) use of opiate analgesic; Z79.899 Other long term (current) drug therapy; Z88.5 Allergy status to narcotic agent; Z83.3 Family history of diabetes mellitus; Z82.49 Family history of ischemic heart disease and other diseases of the circulatory system; Z82.61 Family history of arthritis; Z80.9 Family history of malignant neoplasm, unspecified; Z85.43 Personal history of malignant neoplasm of ovary; Z88.0 Allergy status to penicillin; Z88.8 Allergy status to other drugs, medicaments and biological substances; Z91.018 Allergy to other foods
CPT/HCPCS: 36415; 80048; 80202; 85025; 85652; 86140; A9270-GY; J0692; J3370